=== PATIENT | male | born 1965 | race Caucasian/White ===

== ENCOUNTER 2018-03-04 08:25 | Observation (INO) | payer OTHER ==
[~2018-03-04] VITALS: Ht 193 cm; Wt 114.3 kg
--- NOTE | ~2018-03-04 | PROC ---
[facility] [address] [place] [address] PROCEDURE REPORT Name: AVIS RUBI Room: [address] Nichol Villanueva#: [id number] Admission: 03/04/18 Attend Phys: Arpita Brooks MD Discharge: 03/05/18 Date of : 63 Report #: [id number] THIS REPORT FOR: //name// For GI report, please see the Provation report in [employer] content. By: [id number] Records Staff AYALA /CALEB
--- NOTE | ~2018-03-04 | H ---
[address] [address] HISTORY AND PHYSICAL Name: AVIS RUBI Room: [address] Nichol Villanueva#: [id number] Admission: 03/04/18 Attend Phys: Arpita Brooks MD Discharge: 03/05/18 Date of : 63 Report #: [id number] THIS REPORT FOR: //name// Please refer to the History and Physical performed in the physician's office. By: [id number] Records Staff AYALA /CALEB
[2018-03-04 08:35] VITALS: BP 129/85
[2018-03-04] MEDS ORDERED: PERCOCET 7.5-31 EACH PO (09:20)
[2018-03-04] MEDS ORDERED: TRAMADOL 50 MG50 MG PO (09:21)
[2018-03-04] MEDS ORDERED: COMPAZINE10 MG PO (09:21)
[2018-03-04] MEDS ORDERED: DEXAMETHASONE4 MG PO (09:23)
[2018-03-04 12:04] VITALS: BP 148/90
--- NOTE | 2018-03-04 12:16 | NUR ---
PATIENT TRANSFERRED FROM PACU TO ROOM 115. ALERT AND ORIENTED. REPORTS MINIMAL PAIN AT PEG INSERTION SITE. DRESSING CLEAN/DRY/INTACT. IVF. SCD'S. ADMISSION HISTORY AND ASSESSMENT CHARTED. FAMILY AT BEDSIDE. ORAL CARE SUPPLIES AND ICE CHIPS PROVIDED. FALL PRECAUTIONS IN PLACE. BED ALARM SET.WILL CONTINUE TO MONITOR.
[2018-03-04 15:57] VITALS: BP 147/81
--- NOTE | 2018-03-04 16:00 | NUR ---
PER TERESA MONSIVAIS, PT.WILL MOST LIKELY DISCHARGE TOMORROW WITH [facility] TF. HE WILL ALSO BE ABLE TO EAT FOOD PRN IF ABLE. NOHEMI ROD HERE TO ASSESS PT.'S NUTRITIONAL NEEDS AND MAKE TF RECOMMEDNATIONS. ARANZA CONTACTED [facility] AND FAXED HER FACE SHEET,H&P FROM [facility],AND RD RECOMMENDATIONS. SHE WILL CHECK INSURANCE BENEFITS AND CALL PT.ON WEDNESDAY. NURSING NEEDS TO DO INITIAL TEACHING OF [facility]OL[facility] TF WHEN ORDERED BY AND SEND HOME ENOUGH TF TO LAST PT.UNTIL WEDNESDAY PER RD'S RECOMMENDATION. DISCUSSED ABOVE WITH PT.AND . PT.WANTING TO DO DPOA FOR HEALTH CARE DECISIONS. GAVE HIM DOCUMENT AND DICUSSED. INFORMED I COULDNT NOTARIZE IT TODAY FOR HIM DUE HIM HAVING CONSCIOUS SEDATION. HE UNDERSTOOD. WILL FILL OUT. PT.KNOWS NOT TO SIGN UNTIL NOTARY PRESENT. ARANZA OR SWETA.DATA PROCESSING AUDITOR CAN NOTARIZE TOMORROW FOR PT.
--- NOTE | 2018-03-04 16:28 | NUR ---
PATIENT REMAINS ALERT AND ORIENTED. THROAT PAIN AND ABDOMINAL PAIN PARTIALLY CONTROLLED WITH FENTANYL. OFFERED TO CALL FOR ADDITIONAL PAIN MEDS AND PATIENT REFUSES. UP WITH STANDBY ASSIST TO BATHROOM. VOIDING WELL. IVF INFUSING ORDERED. THE CUFF KNITTER ROUNDED THIS AFTERNOON FOR FEEDING TUBE EDUCATION AND RECOMMENDATIONS. CASE MANAGEMENT WORKING WITH INSURANCE FOR TUBE FEED COVERAGE. FAMILY AT BEDSIDE. CALL LIGHT WITHIN REACH. WILL CONTINUE TO MONITOR.
[2018-03-04 21:00] VITALS: BP 136/89
--- NOTE | 2018-03-05 05:54 | NUR ---
ALERT AND ORIENTED X4. C/O NOT FEELING GOOD ALL OVER. PAIN MEDICATION GIVEN AND PATIENT WAS ABLE TO REST. RESTING QUIETLY ON HOURLY ROUNDS. REMAINS NPO EXCEPT ICE CHIPS AT THIS TIME. PEG TUBE DRESSING CLEAN DRY AND INTACT. CONTINUE ON IV ANTIBIODICS WITHOUT ADVERSE REACTIONS OR SIDE EFFECTS. CALL LIGHT WITHIN REACH. WILL CONTINUE TO MONITOR.
[2018-03-05 13:15] VITALS: BP 136/89
--- NOTE | 2018-03-05 13:19 | NUR ---
[id number] DR PHILLIPS AND SPOKE WITH HIM REGARDING PT DISCHARGE. HE GAVE TELEPHONE ORDERS TO CONTINUE ALL HOME MEDICATIONS, FOLLOW DIETARY RECOMMENDATIONS WITH DIET, AND TO FOLLOW UP WITH ONCOLOGIST IN 1-2 WEEKS. NO NEW RX PROVIDED AT THIS TIME. WILL PLACE ORDERS AND D/C PATIENT BELINDA.
[2018-03-05 13:46] VITALS: BP 136/89
[2018-03-05 13:52] VITALS: BP 136/89
--- NOTE | 2018-03-05 15:08 | NUR ---
PT EDUCATED REGARDING PLAN WITH TUBE FEEDING AND HIM AND HIS VERBALIZED UNDERSTANDING. PT PROVIDED WITH 4 BOTTLES OF TUBE FEED AT DISCHARGE. PT STATED HE WOULD SEE ONCOLOGY TOMORROW DURING HIS RADIATION. NO NEW CONCERNS NOTED AT THIS TIME. NO RX PROVIDED. IV REMOVED INTACT. PT AMBULATED OUT OF UNIT WITH A STEADY GAIT.
== END 2018-03-05 15:15 | disposition home or self-care (01) ==
LOC: M.SUR 08:25 → M.ORTHSURG 11:59 → M.TBA 11:59 → M.ORTHSURG 12:17
PROVIDERS: ADMIT Internal Medicine Gastroenterology
DX: C02.9 Malignant neoplasm of tongue, unspecified (principal); C10.9 Malignant neoplasm of oropharynx, unspecified; R43.2 Parageusia; R11.0 Nausea; R63.4 Abnormal weight loss; A63.0 Anogenital (venereal) warts; R63.3 Feeding difficulties; F17.200 Nicotine dependence, unspecified, uncomplicated; Z43.1 Encounter for attention to gastrostomy; Z72.89 Other problems related to lifestyle; Z79.899 Other long term (current) drug therapy; Z98.890 Other specified postprocedural states; Z92.21 Personal history of antineoplastic chemotherapy